=== PATIENT | male | born 1995 | race Caucasian/White ===

== ENCOUNTER 2016-06-09 04:50 | Emergency (ER) | payer MEDICAID ==
[~2016-06-09] VITALS: Wt 90.0 kg
[2016-06-09] MEDS ORDERED: HYDROCODONE/APAP (5/325) TAB PO ONE (06:30)
[2016-06-09] MEDS ORDERED: DIPHTH/TET/ACEL PERTUSS (ADULT) 0.5 ML VIAL IM* ONE (06:30)
--- NOTE | 2016-06-09 07:47 | RADRPT ---
PROCEDURE: RIGHT HAND - 3 VIEWS CLINICAL INDICATION: 20-year-old male with right hand laceration from punching broken glass. TECHNIQUE: AP, lateral and oblique views of the right hand were obtained. The images reviewed on a PACS workstation. COMPARISON: None. FINDINGS: The bones of the hand appear intact, with no evidence of fracture, dislocation, or subluxation. The joint spaces are preserved. Bone mineralization is within normal limits. No radiopaque foreign body is seen. IMPRESSION: 1. No acute fracture or dislocation. 2. No radiopaque foreign body. .Jacinto Sullivan MD, Date Time Electronically viewed and signed by .Jacinto Sullivan MD, on 06/09/2016 07:46 .Shun/
--- NOTE | 2016-06-09 08:39 | ERD ---
ER Documentation Chief Complaint Date/Time DATE: 06/09/16 TIME: 08:31 Chief Complaint right hand laceration from broken glass HPI Patient is a 20-year-old male who presents to the emergency department with a right hand laceration. Patient states 2 hours ago he punched a mirror which shattered. Patient states that he punched the mirror due to anger. Patient reports immediate pain and bleeding to affected area. Patient states that his current pain level is a 10 out of 10. Patient has not taken any medications. Patient has normal range of motion of all his fingers. Patient denies any previous injury to the affected extremity. Patient states he is right-hand dominant. Patient denies recent tetanus vaccination. ROS All systems reviewed and are negative except as per history of present illness. Medications Home Meds Active Scripts Bacitracin* (Bacitracin Zinc Oint*) 28.35 Gm Oint, 1 APPLIC TOP BID for 5 Days, #1 TUB APPLI TO Prov:JANETTE SOLORZANO PA-C 06/09/16 PMhx/Soc Medical and Surgical Hx: pt denies Medical Hx, pt denies Surgical Hx Hx Alcohol Use: No Hx Substance Use: No Hx Tobacco Use: No FmHx Noncontributory for chief complaint Physical Exam Vitals Vital Signs Date Time Temp Pulse Resp B/P Pulse Ox O2 Delivery O2 Flow Rate FiO2 06/09/16 05:17 98.3 80 16 120/78 99 Physical Exam INITIAL VITAL SIGNS: Reviewed by me. GENERAL: Alert and interactive. No acute distress. HEAD: Head is normocephalic and atraumatic. EYES: EOMI. No scleral icterus. No conjunctival injection. ENT: Moist mucosa. NECK: Supple. Full range of motion. RESPIRATORY: Normal respiratory effort. Clear breath sounds bilaterally. No wheezing, rales, or rhonchi. CV: Regular rate and rhythm. Normal S1 S2. No S3 or S4. No murmurs. ABDOMEN: Soft, non-distended, non-tender. No guarding. No rebound. No masses. EXTREMITIES: No deformity. SKIN: There is a 3 inch partial-thickness laceration to the dorsal surface of the right hand with mild active bleeding. NEUROLOGIC: Alert and oriented x 4. Speech is normal. Moves all extremities equally. No motor or sensory deficits noted. Results 24 hrs Current Medications Medications (Trade) Dose Ordered Sig/Ray Route PRN Reason Start Time Stop Time Status Last Admin Dose Admin Diphtheria/ Tetanus/Acell Pertussis (Adacel) 0.5 ml ONCE ONCE IM* 06/09/16 06:30 06/09/16 06:31 DC 06/09/16 06:51 Acetaminophen/ Hydrocodone Bitart (Salem (5/325)) 1 tab ONCE ONCE PO 06/09/16 06:30 06/09/16 06:31 DC 06/09/16 06:49 Procedures/MDM EMERGENCY DEPARTMENT COURSE / MEDICAL DECISION MAKING: PROCEDURE: RIGHT HAND - 3 VIEWS CLINICAL INDICATION: 20-year-old male with right hand laceration from punching broken glass. TECHNIQUE: AP, lateral and oblique views of the right hand were obtained. The images reviewed on a PACS workstation. COMPARISON: None. FINDINGS: The bones of the hand appear intact, with no evidence of fracture, dislocation, or subluxation. The joint spaces are preserved. Bone mineralization is within normal limits. No radiopaque foreign body is seen. IMPRESSION: 1. No acute fracture or dislocation. 2. No radiopaque foreign body. Laceration Repair by me: Anesthesia: 1% lidocaine with epinephrine locally Location: Dorsal surface of the right hand Tendon/Joint/Nerves: No injury Foreign body: None detected after copious irrigation and exploration Technique: Simple Interrupted Sutures Complexity: No subcutaneous sutures/mucosal repair/ edge excision Post Closure Length: 3 inches Patient's bleeding was easily controlled in the department and there is no indication of anemia. No evidence of compartment syndrome, neurologic injury, vascular injury, open joint, tendon laceration, or foreign body. Patient is appropriate for outpatient follow up. Tdap given in the department. 48 hour wound check. Scar minimization instructions given. MDM: This is a 20-year-old male who comes to the emergency room secondary to laceration of the right hand after punching out a window today. On physical examination there is a 3 inch laceration to the dorsal surface of the right hand with mild active bleeding. There does not appear to be any tendon or ligamental involvement. The patient is able to move all digits on his right hand with no difficulty. Strength and sensation is intact in the upper extremities bilaterally. The patient was complaining of 10 out of 10 pain on arrival to the department and was given Salem in the department for acute pain relief. Discharge:The patient was discharged with a prescription for bacitracin to be applied twice daily for 5 days. The patient was advised to followup with their PMD in 1-2 days and to return to the ED if there are any new or worsening symptoms. The patient understood and agreed with treatment and plan. Disposition: Laceration of the right hand. Departure Diagnosis: Primary Impression: Laceration Condition: Stable Patient Instructions: Caring for Your Wound, Laceration, All Additional Instructions: Return to the emergency department in 48 hours for wound recheck. Keep the wound clean, dry and covered. Follow-up with your primary care physician within 1 week. Return to the emergency department immediately should you have any new or worsening symptoms, uncontrolled fevers, or other unexplained symptoms. Take all medications as directed. JANETTE SOLORZANO PA-C Jun 09, 2016 08:39
[2016-06-09] MEDS ORDERED: BAC30OI TOP (08:43)
== END 2016-06-09 09:00 | disposition home or self-care (01) ==
LOC: FTE 04:50
DX: S61.411A Laceration without foreign body of right hand, initial encounter (principal); W25.XXXA Contact with sharp glass, initial encounter; Y92.9 Unspecified place or not applicable; Z23 Encounter for immunization
CPT/HCPCS: 12004; 73130; 90471; 90715; Z7502; Z7610

== ENCOUNTER 2016-06-14 12:37 | Emergency (ER) | payer MEDICAID ==
[~2016-06-14] VITALS: Wt 100.0 kg
[~2016-06-14 12:37] MED LIST: BAC30OI TOP
[2016-06-14] MEDS ORDERED: CEFTRIAXONE 1 GM INJ IM ONE (13:30)
[2016-06-14] MEDS ORDERED: LIDOCAINE 1% (MDV) 20 ML INJ SC ONE (14:00)
--- NOTE | 2016-06-14 14:03 | ERD ---
ER Documentation Chief Complaint Date/Time DATE: 06/14/16 TIME: 14:00 Chief Complaint right hand wound infected from sutures about 1 week ago HPI This patient is a 20-year-old male presenting 5 days post laceration repair to his right hand after punching out a glass window. The patient missed his 48 hour follow-up because he was "working and did not have time". The patient denies any fevers, chills, discharge from the area. He states he has been able to move his hand better than after the incident. He is here now because there is a smell coming from the wound and he went to an urgent care that told him it was infected. There are no other signs, symptoms, alleviating or exacerbating factors at this time. ROS All systems reviewed and are negative except as per history of present illness. Medications Home Meds Active Scripts Cephalexin* (Cephalexin*) 500 Mg Capsule, 500 MG PO Q8 for 10 Days, #30 CAP Prov:JANETTE SOLORZANO PA-C 06/14/16 Sulfamethoxazole-Trimethoprim* (Bactrim* DS) 800-160 Mg Tab, 1 TAB PO BID for 10 Days, #20 TAB Prov:JANETTE SOLORZANO PA-C 06/14/16 Bacitracin* (Bacitracin Zinc Oint*) 28.35 Gm Oint, 1 APPLIC TOP BID for 5 Days, #1 TUB APPLI TO Prov:JANETTE SOLORZANO PA-C 06/09/16 PMhx/Soc Medical and Surgical Hx: pt denies Medical Hx, pt denies Surgical Hx Hx Alcohol Use: No Hx Substance Use: No Hx Tobacco Use: No FmHx Noncontributory for chief complaint Physical Exam Vitals Vital Signs Date Time Temp Pulse Resp B/P Pulse Ox O2 Delivery O2 Flow Rate FiO2 06/14/16 14:14 98.3 88 122/68 06/14/16 12:42 98.4 60 20 136/84 99 Physical Exam INITIAL VITAL SIGNS: Reviewed by me. GENERAL: Alert and interactive. No acute distress. HEAD: Head is normocephalic and atraumatic. EYES: EOMI. No scleral icterus. No conjunctival injection. ENT: Moist mucosa. NECK: Supple. Full range of motion. RESPIRATORY: Normal respiratory effort. Clear breath sounds bilaterally. No wheezing, rales, or rhonchi. CV: Regular rate and rhythm. Normal S1 S2. No S3 or S4. No murmurs. ABDOMEN: Soft, non-distended, non-tender. No guarding. No rebound. No masses. EXTREMITIES: The patient is able to move his right upper extremity fully. Sensation and strength is intact in the right hand. There is mild limited range of motion of the fingers secondary to pain but this has improved since the incident. SKIN: There is mild swelling and foul odor from the laceration of the right hand. There is mild erythema surrounding the wound but no copious discharge is present. NEUROLOGIC: Alert and oriented x 4. Speech is normal. Moves all extremities equally. No motor or sensory deficits noted. Results 24 hrs Current Medications Medications (Trade) Dose Ordered Sig/Ray Route PRN Reason Start Time Stop Time Status Last Admin Dose Admin Ceftriaxone Sodium (Rocephin) 1 gm ONCE ONCE IM 06/14/16 13:30 06/14/16 13:32 DC 06/14/16 13:39 Lidocaine (Xylocaine 1% (Mdv) 20 ml) 20 ml ONCE ONCE SC 06/14/16 14:00 06/14/16 14:01 DC 06/14/16 13:39 Procedures/MDM 20-year-old male presenting for 5 day follow-up after laceration to the right hand after punching a glass window. On physical examination there is mild discharge coming from the laceration and mildly decreased range of motion secondary to pain of the right fingers. Strength and sensation is intact. In the department the wound was irrigated with Betadine and soaked. The wound was redressed and wrapped. The patient was explicitly instructed to follow-up within 48 hours after the laceration was repaired in the department and the patient failed to do so. When asked why he did not come back the patient stated "I was too busy and I had to work". The need for follow-up was explicitly stressed once again to the patient to follow-up in 48 hours to have the wound rechecked. 1 g IM Rocephin was given in the department. Outpatient antibiotics included Bactrim and cephalexin both for 10 days. The patient was instructed he must follow-up this time in 48 hours and he must go to the [facility] hand clinic. Information was given to the patient to do so. He was also instructed to follow-up with his primary care doctor immediately for surveillance of the wound. The patient also smokes marijuana and eats edible marijuana and he was told to refrain from doing so as this will increase the time it takes for the wound to heal. Although the patient was noncompliant with follow-up the first time, the patient does appear to understand this information currently and he states he will follow-up. The need for antibiotics was re-stressed to the patient and he states he will get them filled right away. At this time I have low suspicion for severe cellulitis or sepsis and there does not appear to be any lymphatic streaking proximal to the wound. Dr. Car Mcginnis, supervising ED physician did visit this patient in the results waiting area and agreed with the assessment. All of the patient's questions and concerns were addressed. Departure Diagnosis: Primary Impression: Encounter for wound re-check Additional Impression: Cellulitis Condition: Stable Additional Instructions: You must return in 48 hours for wound recheck. Return sooner if there is any fevers, discharge, redness, warmth, or other alarming symptoms. Follow-up with your primary care physician within 1 week. Return to the emergency department immediately should you have any new or worsening symptoms, uncontrolled fevers, or other unexplained symptoms. Take all medications as directed. JANETTE SOLORZANO PA-C Jun 14, 2016 14:03
[2016-06-14] MEDS ORDERED: BACTDS PO (14:04)
[2016-06-14] MEDS ORDERED: CEPH500C PO (14:04)
[2016-06-14 14:14] VITALS: BP 122/68; PULSE 88; TEMP 98.3
== END 2016-06-14 14:17 | disposition home or self-care (01) ==
LOC: FTE 12:37
DX: Z48.01 Encounter for change or removal of surgical wound dressing (principal); L03.113 Cellulitis of right upper limb
CPT/HCPCS: 96372; J0696; Z7502; Z7610

== ENCOUNTER 2016-06-17 10:57 | Emergency (ER) | payer MEDICAID ==
[~2016-06-17] VITALS: Wt 100.0 kg
[~2016-06-17 10:57] MED LIST changes: +BACTDS PO; +CEPH500C PO
--- NOTE | 2016-06-17 13:22 | ERD ---
ER Documentation Chief Complaint Date/Time DATE: 06/17/16 TIME: 13:15 Chief Complaint right hand suture check HPI The patient is a 20-year-old male here for a wound check to the dorsal aspect of his right hand at the MCP joints. He was initially seen on 06/09/16 here, which is 8 days ago when he punched a mirror out of anger with his right hand close fist. He denies pain, redness, purulent drainage, bleeding or oozing, flulike symptoms, change in sensation, or decreased strength or range of motion. He was prescribed Bactrim and Keflex, however has not filled these because he is unsure if they are covered by his insurance. ROS All systems reviewed and are negative except as per history of present illness. Medications Home Meds Active Scripts Cephalexin* (Cephalexin*) 500 Mg Capsule, 500 MG PO Q8 for 10 Days, #30 CAP Prov:JANETTE SOLORZANO PA-C 06/14/16 Sulfamethoxazole-Trimethoprim* (Bactrim* DS) 800-160 Mg Tab, 1 TAB PO BID for 10 Days, #20 TAB Prov:JANETTE SOLORZANO PA-C 06/14/16 Bacitracin* (Bacitracin Zinc Oint*) 28.35 Gm Oint, 1 APPLIC TOP BID for 5 Days, #1 TUB APPLI TO Prov:JANETTE SOLORZANO PA-C 06/09/16 Allergies Allergies: Coded Allergies: No Known Allergy (Unverified , 06/17/16) PMhx/Soc Hx Alcohol Use: No Hx Substance Use: No Hx Tobacco Use: No Physical Exam Vitals Vital Signs Date Time Temp Pulse Resp B/P Pulse Ox O2 Delivery O2 Flow Rate FiO2 06/17/16 11:04 97.9 62 18 132/67 99 Physical Exam Const: No acute distress Vital signs: Reviewed by me, afebrile, no tachycardia Head: Atraumatic Eyes: Normal Conjunctiva ENT: Normal External Ears, Nose and Mouth. Neck: Full range of motion..~ No meningismus. Resp: Clear to auscultation bilaterally Cardio: Regular rate and rhythm, no murmurs Abd: Soft, non tender, non distended. Normal bowel sounds Skin: No petechiae or rashes Back: No midline or flank tenderness Ext: + RIGHT HAND with a healing laceration with simple interrupted sutures to the MCP joints. No surrounding erythema. Mild edema to 3rd, 4th, and 5th digits. ROM intact. Pincer grasp intact with all fingers and thumb. Able to give OK and thumbs up signs. Sensation intact to light tough. Some scabbing at the site. No active bleeding or oozing. Compartments and all tissues soft and non-tender to palpation of hand and fingers. Radial pulses +2. Capillary refill < 2 sec. No cyanosis, or edema Neur: Awake and alert Psych: Normal Mood and Affect Results 24 hrs Current Medications Medications (Trade) Dose Ordered Sig/Ray Route PRN Reason Start Time Stop Time Status Last Admin Dose Admin Cephalexin (Keflex) 500 mg ONCE ONCE PO 06/17/16 13:30 06/17/16 13:31 DC 06/17/16 13:22 Trimethoprim/ Sulfamethoxazole (Bactrim (Ds)) 1 tab ONCE ONCE PO 06/17/16 13:30 06/17/16 13:31 DC 06/17/16 13:22 Procedures/MDM Nursing Notes Reviewed Previous Medical Records requested via [email or web address]. EMERGENCY DEPARTMENT COURSE / MEDICAL DECISION MAKING: The patient comes to the ED secondary to wound check of the dorsal aspect of the right hand. The patient was treated with Keflex 500 mg p.o., Bactrim DS p.o. The case was discussed with supervising physician Dr. Knapp who saw and examined the patient. There is no evidence at this time for compartment syndrome, tenosynovitis, nerve injury, vascular injury, tendon injury, or infection. It was agreed that the wound is healing well and that the patient should return in 48 hours for a re-check and possible removal. Final impression: Normal wound check Based on patient's history of present illness and physical examination the decision was made to discharge. There is no evidence of life threatening injuries or illnesses at this time. The wound was dressed with gauze and kerlix. On re-examination, patient resting in no distress, stable vital signs, reports feeling better and safe for discharge with outpatient follow up here in 48 hours for a recheck and possible suture removal. Patient given return precautions. Patient verbalized understanding and agreed to return precautions. Patient informed that he is strongly advised to please fill his prescriptions that he has with him for Bactrim and Keflex. He stated that he will go to the pharmacy after being discharged from the emergency department. He states that he if he has problems with his insurance, he will pay todd for the antibiotics. The patient was instructed to keep the area clean and dry. Patient's blood pressure was elevated but appears stable without evidence of hypertensive emergency, end organ damage, chest pain or shortness of breath. The patient was counseled about the risks of untreated hypertension and urged to pursue outpatient monitoring and therapy in 2-3 days with their primary care physician. Departure Diagnosis: Primary Impression: Encounter for wound re-check Condition: Stable GINNA DA SILVA NP Jun 17, 2016 13:22
[2016-06-17] MEDS ORDERED: TRIMETHOPRIM/SULFAMETHOX (DS) TAB PO ONE (13:30)
[2016-06-17] MEDS ORDERED: CEPHALEXIN 500 MG CAP PO ONE (13:30)
== END 2016-06-17 13:49 | disposition home or self-care (01) ==
LOC: FTE 10:57
DX: Z48.01 Encounter for change or removal of surgical wound dressing (principal)
CPT/HCPCS: Z7502; Z7610; 99283

== ENCOUNTER 2016-07-09 11:29 | Emergency (ER) | payer MEDICAID ==
[~2016-07-09] VITALS: Ht 180.3 cm; Wt 98.0 kg
[2016-07-09 11:52] VITALS: Ht 180.3 cm; Wt 98.0 kg
[2016-07-09] MEDS ORDERED: ACET325T33 PO (13:24)
--- NOTE | 2016-07-09 13:33 | ERD ---
ER Documentation Chief Complaint Date/Time DATE: 07/09/16 TIME: 13:30 Chief Complaint for suture removal on right knuckle HPI This is a 20-year-old male presenting to the emergency room for suture removal of a laceration of the right hand knuckle after punching a mirror due to anger on June 09, 2016. Patient developed an infection and was placed on Keflex and Bactrim, patient states that he finished the antibiotics 1 week ago. Patient states that there is pain with moving of his digits. He denies any fevers ROS All systems reviewed and are negative except as per history of present illness. Medications Home Meds Active Scripts Acetaminophen* (Tylenol*) 325 Mg Tablet, 2 TAB PO Q4 Y for PAIN AND OR ELEVATED TEMP, #30 TAB Prov:VIC MENDEZ PA-C 07/09/16 Cephalexin* (Cephalexin*) 500 Mg Capsule, 500 MG PO Q8 for 10 Days, #30 CAP Prov:JANETTE SOLORZANO PA-C 06/14/16 Sulfamethoxazole-Trimethoprim* (Bactrim* DS) 800-160 Mg Tab, 1 TAB PO BID for 10 Days, #20 TAB Prov:JANETTE SOLORZANO PA-C 06/14/16 Bacitracin* (Bacitracin Zinc Oint*) 28.35 Gm Oint, 1 APPLIC TOP BID for 5 Days, #1 TUB APPLI TO Prov:JANETTE SOLORZANO PA-C 06/09/16 Allergies Allergies: Coded Allergies: No Known Allergy (Unverified , 06/17/16) PMhx/Soc Hx Alcohol Use: No Hx Substance Use: No Hx Tobacco Use: No Physical Exam Vitals Vital Signs Date Time Temp Pulse Resp B/P Pulse Ox O2 Delivery O2 Flow Rate FiO2 07/09/16 11:52 98.2 62 18 148/64 98 Physical Exam General: WD/WN, in no apparent distress, non-toxic appearing HENT: NC/AT Eyes: Conjunctiva normal Neck: Supple Pulm: Normal labored breathing CV: Good capillary refill GI: Non-distended, no guarding Back: No masses Ext: No clubbing, cyanosis, or edema Neuro: Moves on all fours, no neuro deficits, sensation intact Skin: 3 inches repaired laceration with 9 sutures intact and scab developed, no evidence of purulence Psych: Normal mood Procedures/MDM This is a 20-year-old male presenting to the emergency room department for removing sutures of his right hand distal metacarpals. Patient had 9 sutures intact of the 3 inch repaired laceration. There was no evidence of cellulitis. 9 sutures removed, patient had some mild dehiscence, bacitracin was applied and Tegaderm. I have given patient precautions for developing another infection. Discussed to follow-up with the primary care physician in the next 2 days. Discussed return the ER for any worsening symptoms. Patient understands and agrees with plan Departure Diagnosis: Primary Impression: Encounter for removal of sutures Additional Impression: Encounter for wound re-check Condition: Stable Patient Instructions: Wound Care, Post Op Wound Check, General, Post Op Wound Check, Pain Referrals: NO PRIMARY,CARE PHYSICIAN (PCP) [facility] YOU HAVE RECEIVED A MEDICAL SCREENING EXAM AND THE RESULTS INDICATE THAT YOU DO NOT HAVE A CONDITION THAT REQUIRES URGENT TREATMENT IN THE EMERGENCY DEPARTMENT. FURTHER EVALUATION AND TREATMENT OF YOUR CONDITION CAN WAIT UNTIL YOU ARE SEEN IN YOUR DOCTORS OFFICE WITHIN THE NEXT 1-2 DAYS. IT IS YOUR RESPONSIBILITY TO MAKE AN APPOINTMENT FOR [facility]. IF YOU HAVE A PRIMARY DOCTOR --you should call your primary doctor and schedule an appointment IF YOU DO NOT HAVE A PRIMARY DOCTOR YOU CAN CALL OUR PHYSICIAN REFERRAL HOTLINE AT IF YOU CAN NOT AFFORD TO SEE A PHYSICIAN YOU CAN CHOSE FROM THE FOLLOWING [facility] [address] [facility]. [facility] [place] [address] [facility] [facility] [place] [address] [facility] [facility] [address] [facility] [facility] [address] [facility]. [facility]. [address] [facility] Additional Instructions: FOLLOW UP WITH YOUR PRIMARY CARE PHYSICIAN TOMORROW.Return to this facility if you are not improving as expected. Take all medicines as directed. Return to this facility if you are not improving as expected. VIC MENDEZ PA-C Jul 09, 2016 13:33
== END 2016-07-09 15:03 | disposition home or self-care (01) ==
LOC: FTE 11:29
DX: Z48.02 Encounter for removal of sutures (principal)
CPT/HCPCS: 99283

== ENCOUNTER 2018-11-03 09:19 | Emergency (ER) | payer MEDICAID ==
[~2018-11-03] VITALS: Ht 182.9 cm; Wt 109.7 kg
[~2018-11-03 09:19] MED LIST changes: +ACET325T33 PO; -BAC30OI TOP; +BACI28.34 TOP
[2018-11-03 09:21] VITALS: Ht 182.9 cm; Wt 109.7 kg
[2018-11-03] MEDS ORDERED: ONDANSETRON 4 MG INJ IV STA (09:39)
[2018-11-03] MEDS ORDERED: FAMOTIDINE 20 MG INJ IV STA (09:39)
[2018-11-03] MEDS ORDERED: SOD CHLORIDE 0.9% 1,000 ML IV STA (09:39)
[2018-11-03] MEDS ORDERED: KETOROLAC 30 MG INJ IV STA (09:39)
[2018-11-03] MEDS ORDERED: ONDA4TAB14 PO (11:34)
[2018-11-03] MEDS ORDERED: ACET325T33 PO (11:34)
[2018-11-03] MEDS ORDERED: FAMO-96 PO (11:34)
[2018-11-03 11:48] VITALS: BP 126/73; PULSE 60; RESP 18
--- NOTE | 2018-11-03 13:07 | ERD ---
ER Documentation Chief Complaint Chief Complaint AP SINCE YESTERDAY HPI 23-year-old male presenting with abdominal pain epigastric region that started yesterday. Patient developed diarrhea yesterday with nausea but no vomiting. He has no fevers and took Pepto-Bismol. Denies chest pain or shortness of breath. Denies medical problems. NKDA. Surgical history denies. Social history denies ROS All systems reviewed and are negative except as per history of present illness. Medications Home Meds Active Scripts Acetaminophen* (Tylenol*) 325 Mg Tablet, 2 TAB PO Q8 PRN for PAIN AND OR ELEVATED TEMP, #20 TAB Prov:SLAED ATWOOD PA-C 11/03/18 Ondansetron (Ondansetron Odt) 4 Mg Tab.rapdis, 4 MG PO Q6H PRN for NAUSEA AND/OR VOMITING, #10 TAB Prov:SLADE ATWOOD PA-C 11/03/18 Famotidine* (Pepcid*) 20 Mg Tablet, 20 MG PO BID for 4 Days, #30 TAB Prov:SLADE ATWOOD PA-C 11/03/18 Acetaminophen* (Tylenol*) 325 Mg Tablet, 2 TAB PO Q4 PRN for PAIN AND OR ELEVATED TEMP, #30 TAB Prov:VIC MENDEZ PA-C 07/09/16 Cephalexin* (Cephalexin*) 500 Mg Capsule, 500 MG PO Q8 for 10 Days, #30 CAP Prov:JANETTE SOLORZANO PA-C 06/14/16 Sulfamethoxazole-Trimethoprim* (Bactrim* DS) 800-160 Mg Tab, 1 TAB PO BID for 10 Days, #20 TAB Prov:JANETTE SOLORZANO PA-C 06/14/16 Bacitracin* (Bacitracin Zinc Oint*) 28.35 Gm Oint, 1 APPLIC TOP BID for 5 Days, #1 TUB APPLI TO Prov:JANETTE SOLORZANO PA-C 06/09/16 Allergies Allergies: Coded Allergies: No Known Allergy (Unverified , 06/17/16) PMhx/Soc Medical and Surgical Hx: pt denies Medical Hx, pt denies Surgical Hx Hx Alcohol Use: No Hx Substance Use: No Hx Tobacco Use: No Smoking Status: Never smoker FmHx Family History: No diabetes, No coronary disease, No other Physical Exam Vitals Vital Signs Date Temp Pulse Resp B/P (MAP) Pulse Ox O2 O2 Flow FiO2 Time Delivery Rate 11/03/18 98.1 60 18 126/73 99 11:48 (90) 11/03/18 97.7 64 18 127/51 99 09:21 (76) Physical Exam GENERAL: The patient is well-appearing, well-nourished, in no acute distress HEENT: Atraumatic. Conjunctivae are pink. Pupils equal, round, and reactive to light. There is no scleral icterus. Tympanic membranes clear bilaterally. Oropharynx clear. NECK: C-spine is soft and supple. There is no meningismus. There is no cervical lymphadenopathy. CHEST: Clear to auscultation bilaterally. There are no rales, wheezes or rhonchi. HEART: Regular rate and rhythm. No murmurs, clicks, rubs or gallops. ABDOMEN: Active bowel sounds. No distention. No organomegaly. Tender palpation the epigastric region with no rebound tenderness. Result Diagram: 11/03/18 0950 11/03/18 0951 Results 24 hrs Laboratory Tests Test 11/03/18 09:50 11/03/18 09:51 White Blood Count 6.3 10^3/ul Red Blood Count 5.34 10^6/ul Hemoglobin 15.3 g/dl Hematocrit 46.9 % Mean Corpuscular Volume 87.8 fl Mean Corpuscular Hemoglobin 28.7 pg Mean Corpuscular Hemoglobin Concent 32.6 g/dl Red Cell Distribution Width 13.9 % Platelet Count 215 10^3/UL Mean Platelet Volume 11.6 fl Immature Granulocytes % 0.500 % Neutrophils % 64.3 % Lymphocytes % 23.3 % Monocytes % 10.5 % Eosinophils % 1.1 % Basophils % 0.3 % Nucleated Red Blood Cells % 0.0 /100WBC Immature Granulocytes # 0.030 10^3/ul Neutrophils # 4.0 10^3/ul Lymphocytes # 1.5 10^3/ul Monocytes # 0.7 10^3/ul Eosinophils # 0.1 10^3/ul Basophils # 0.0 10^3/ul Nucleated Red Blood Cells # 0.0 10^3/ul Urine Color YELLOW Urine Clarity CLEAR Urine pH 6.0 Urine Specific [place] 1.019 Urine Ketones NEGATIVE mg/dL Urine Nitrite NEGATIVE mg/dL Urine Bilirubin NEGATIVE mg/dL Urine Urobilinogen NEGATIVE mg/dL Urine Leukocyte Esterase NEGATIVE Rosette/ul Urine Hemoglobin NEGATIVE mg/dL Urine Glucose NEGATIVE mg/dL Urine Total Protein NEGATIVE mg/dl Sodium Level 143 mmol/L Potassium Level 4.0 mmol/L Chloride Level 108 mmol/L Carbon Dioxide Level 22 mmol/L Anion Gap 13 Blood Urea Nitrogen 12 mg/dl Creatinine 1.15 mg/dl Est Glomerular Filtrat Rate mL/min > 60 mL/min Glucose Level 103 mg/dl Calcium Level 9.3 mg/dl Total Bilirubin 1.7 mg/dl Direct Bilirubin 0.00 mg/dl Indirect Bilirubin 1.7 mg/dl Aspartate Amino Transf (AST/SGOT) 43 IU/L Alanine Aminotransferase (ALT/SGPT) 51 IU/L Alkaline Phosphatase 98 IU/L Total Protein 8.3 g/dl Albumin 4.9 g/dl Globulin 3.40 g/dl Albumin/Globulin Ratio 1.44 Lipase 69 U/L Current Medications Medications Dose Sig/Ray Start Time Status Last (Trade) Ordered Route PRN Stop Time Admin Dose Reason Admin Sodium 1,000 ml @ Q1H STAT 11/03/18 DC 11/03/18 Chloride 1,000 mls/hr IV 09:39 09:49 11/03/18 10:38 Ondansetron 4 mg ONCE STAT 11/03/18 DC 11/03/18 HCl (Zofran IV 09:39 09:50 Inj) 11/03/18 09:41 Famotidine 20 mg ONCE STAT 11/03/18 DC 11/03/18 (Pepcid Iv) IV 09:39 09:49 11/03/18 09:41 Ketorolac 30 mg ONCE STAT 11/03/18 DC 11/03/18 Tromethamine IV 09:39 09:50 (Toradol) 11/03/18 09:41 Procedures/MDM DIAGNOSTIC IMAGING REPORT Patient: AURORA ESTEBAN : 1995 Age: 23 Sex: M MR #: [id number] DOS: 11/03/18 0939 Ordering MD: CASSIDY ATWOOD PA-C Location: [facility] Room/Bed: PROCEDURE: US Abdomen (right upper quadrant). CLINICAL INDICATION: Abdominal pain. TECHNIQUE: Multiple real-time longitudinal and transverse images of the right upper quadrant of the abdomen were acquired utilizing a curved array transducer. Images were reviewed on a high-resolution PACS workstation. COMPARISON: None FINDINGS: The liver is normal in size with a coarsened, heterogeneous echotexture without focal mass or intrahepatic biliary dilatation. There is normal hepatopedal flow within the main portal vein. The gallbladder is well displayed without filling defects or wall thickening. The common bile duct measures 2.0 mm in maximal dimension. The visualized portions of the pancreas are unremarkable with obscuration of the tail of the pancreas. No free fluid is identified. The right kidney measures 9.4 cm in length. There is normal echogenicity within the right kidney. There is no perinephric fluid collection. No hydronephrosis, mass, or calculus is seen. IMPRESSION: 1. Mildly coarsened, heterogeneous hepatic echotexture suggesting steatosis. 2. The gallbladder and biliary tree appear unremarkable. MDM: 23-year-old male presenting with epigastric pain. Patient ultrasound blood work is within normal limits. Patient likely has findings consistent with gastritis. I have low suspicion for cardiac or pulmonary emergency. I have low suspicion for infectious process. Patient is discharged with strict ER precautions and told to follow-up with primary care within 1 to 2 days for close evaluation. Return immediately to the ER. All questions answered at discharge Departure Diagnosis: Primary Impression: Epigastric abdominal pain Condition: Stable Patient Instructions: Epigastric Pain (Uncertain Cause) Referrals: [facility] YOU HAVE RECEIVED A MEDICAL SCREENING EXAM AND THE RESULTS INDICATE THAT YOU DO NOT HAVE A CONDITION THAT REQUIRES URGENT TREATMENT IN THE EMERGENCY DEPARTMENT. FURTHER EVALUATION AND TREATMENT OF YOUR CONDITION CAN WAIT UNTIL YOU ARE SEEN IN YOUR DOCTORS OFFICE WITHIN THE NEXT 1-2 DAYS. IT IS YOUR RESPONSIBILITY TO MAKE AN APPOINTMENT FOR FOLOW-UP CARE. IF YOU HAVE A PRIMARY DOCTOR --you should call your primary doctor and schedule an appointment IF YOU DO NOT HAVE A PRIMARY DOCTOR YOU CAN CALL OUR PHYSICIAN REFERRAL HOTLINE AT IF YOU CAN NOT AFFORD TO SEE A PHYSICIAN YOU CAN CHOSE FROM THE FOLLOWING [facility] [id number] [place] [facility] [address] [facility] [address] [facility] [address] [facility]. [facility] [address] [facility]. [facility]. [address] Additional Instructions: FOLLOW UP WITH YOUR PRIMARY CARE PHYSICIAN TOMORROW.Return to this facility if you are not improving as expected. SLADE ATWOOD PA-C Nov 03, 2018 13:07
== END 2018-11-03 11:48 | disposition home or self-care (01) ==
LOC: FTE 09:19
DX: R10.13 Epigastric pain (principal); R11.0 Nausea
CPT/HCPCS: 36415; 76705; 80053; 81003; 83690; 85025; 96361; 96374; 96375; J1885; J2405; J7030; Z7502; Z7610